=== PATIENT | female | born 1975 ===

== ENCOUNTER 2017-05-16 09:38 | Emergency (ER) | payer SELFPAY ==
[2017-05-16 09:53] VITALS: O2SAT 98
--- NOTE | 2017-05-16 10:35 | ED PDOC ---
HPI: Female Pain Time Seen by Provider: 05/16/17 09:58 Chief Complaint (Nursing): Female Genitourinary Chief Complaint (Provider): Vaginal bleeding History Per: Patient Additional Complaint(s): 42 yo female, no PMH, presents to ED with complaints of vaginal bleeding and cramping x 1 day. Pt is 11 weeks . Pt reports beeing seen and evaluated in the clinic yesterday and was told she has a demise. Pt has a follow up appointment at clinic on June 01; however, Pt was advised to present to ED if at anytime pain or bleeding start Past Medical History Reviewed: Nursing Documentation, Vital Signs Vital Signs: Last Vital Signs Temp 97 F L 05/16/17 09:50 Pulse 84 05/16/17 09:50 Resp 20 05/16/17 09:50 BP 124/80 05/16/17 09:50 Pulse Ox 98 05/16/17 09:50 - Medical History PMH: No Chronic Diseases - Surgical History Surgical History: No Surg Hx - Family History Family History: States: No Known Family Hx - Living Arrangements Living Arrangements: With Family - Social History Current smoker - smoking cessation education provided: No Drugs: Denies - Home Medications Home Medications: Ambulatory Orders Medication Instructions Recorded Ibuprofen [Motrin] 600 mg PO Q6 #20 tab 05/16/17 Misoprostol 200 mcg PO Q12 #8 tablet 05/16/17 oxyCODONE/Acetaminophen [Percocet 1 ea PO Q6 PRN #5 tab 05/16/17 5/325 mg Tab] - Allergies Allergies/Adverse Reactions: Allergies Allergy/AdvReac Type Severity Reaction Status Date / Time No Known Allergies Allergy Verified 05/16/17 09:50 Review of Systems ROS Statement: Except As Marked, All Systems Reviewed And Found Negative Gastrointestinal: Positive for: Abdominal Pain Genitourinary Female: Positive for: Vaginal Bleeding Physical Exam - Reviewed Nursing Documentation Reviewed: Yes Vital Signs Reviewed: Yes - Physical Exam Appears: Positive for: Well, Non-toxic, No Acute Distress Head Exam: Positive for: ATRAUMATIC, NORMAL INSPECTION, NORMOCEPHALIC Skin: Positive for: Normal Color, Warm, DRY Eye Exam: Positive for: EOMI, Normal appearance, PERRL ENT: Positive for: Normal ENT Inspection Neck: Positive for: Normal, Painless ROM Cardiovascular/Chest: Positive for: Regular Rate, Rhythm Respiratory: Positive for: CNT, Normal Breath Sounds Gastrointestinal/Abdominal: Positive for: Normal Exam, Bowel Sounds, Soft Pelvic Exam: Positive for: External Exam Normal, Active Bleeding (minimal) Back: Positive for: Normal Inspection Extremity: Positive for: Normal ROM Neurologic/Psych: Positive for: Alert, Oriented - Laboratory Results Result Diagrams: 05/16/17 10:45 - ECG O2 Sat by Pulse Oximetry: 98 Medical Decision Making Medical Decision Making: Diagnostics ordered Pt medicated with 2 mg Morphine IV for pain beta: 2079 Blood type: O+ US IMPRESSION: Intrauterine gestation with mildly deformed gestational sac. pole demonstrates no detectable cardiac activity. [place]-rump length corresponds to 7 weeks 3 days. Consistent with demise. Pt educated on results and demonstrated full understanding Case discussed with OB on-call, Dr. Cummings, who agreed pt stable for discharge at this time. Cytotec RX advised if Pt would like to expidite procedd. Advised to follow up with OB as scheduled. Return to ED with any worsening symptoms at any time. Disposition - Clinical Impression Clinical Impression: Spontaneous - Patient ED Disposition Is Patient to be Admitted: No - Disposition [facility] Disposition: Routine/Home Disposition Time: 14:23 Condition: STABLE Prescriptions: Ibuprofen [Motrin] 600 mg PO Q6 #20 tab Misoprostol 200 mcg PO Q12 #8 tablet oxyCODONE/Acetaminophen [Percocet 5/325 mg Tab] 1 ea PO Q6 PRN #5 tab PRN Reason: Pain, Severe (8-10) Instructions: Spontaneous Miscarriage (ED) Forms: [employer] (Uzbek) Print Language: KUWAITI
[2017-05-16 10:54] LABS: BASO # 0.1 K/uL (0.0-0.2); BASO % 0.7 % (0.0-2.0); EOS # 0.2 K/uL (0.0-0.7); EOS % 2.2 % (0.0-4.0); HEMOGLOBIN 15.3 g/dL (12.0-16.0); LYMPH # 2.5 K/uL (1.0-4.3); LYMPH % 25.5 % (20.0-40.0); MEAN CELL VOLUME 90.6 fl (81.0-99.0); MEAN CORPUSCULAR HEMOGLOBIN 30.6 pg (27.0-31.0); MEAN CORPUSCULAR HGB CONC 33.8 g/dL (33.0-37.0); MEAN PLATELET VOLUME 7.7 fl (7.2-11.7); MONO # 0.6 K/uL (0.0-0.8); MONO % 5.8 % (0.0-10.0); NEUT # 6.3 K/uL (1.8-7.0); NEUT % 65.8 % (50.0-75.0); RBC 4.99 Mil/uL (3.80-5.20); RED CELL DISTRIBUTION WIDTH 13.3 % (11.5-14.5); WHITE BLOOD COUNT 9.6 K/uL (4.8-10.8)
--- NOTE | 2017-05-16 12:34 | US ---
PROCEDURE: OB Pelvic Ultrasound HISTORY: demise? COMPARISON: 04/19/2017 FINDINGS: UTERUS: Intrauterine gestational sac identified. The sac is mildly deformed. Mean sac diameter is equivalent to 8 weeks 2 days. pole identified. [place]-rump length corresponds to 7 weeks 3 days. No detectable cardiac activity. Findings consistent with demise. [place]-gestational hemorrhage: None. Uterus measures 9.8 x 5.0 x 6.7 cm. No mass CERVIX: Long and closed. No cervical abnormality seen. RIGHT OVARY: Not visualized LEFT OVARY: Measures 2.3 x 1.3 x 2.0 cm. No mass. Normal flow. FREE FLUID: None. OTHER FINDINGS: None. IMPRESSION: Intrauterine gestation with mildly deformed gestational sac. pole demonstrates no detectable cardiac activity. [place]-rump length corresponds to 7 weeks 3 days. Consistent with demise.
[2017-05-16 14:19] VITALS: BP 110/68; PULSE 65; RESP 16; TEMP 98
== END 2017-05-16 14:16 | disposition home or self-care (01) ==
LOC: H.ER 09:38
DX: O03.9 Complete or unspecified spontaneous abortion without complication (principal); Z3A.11 11 weeks gestation of pregnancy

== ENCOUNTER 2017-06-08 10:42 | Emergency (ER) | payer SELFPAY ==
[2017-06-08 10:47] VITALS: BP 117/76; PULSE 71; RESP 20; TEMP 97.9; O2SAT 100
--- NOTE | 2017-06-08 11:29 | ED PDOC ---
HPI: Female Pain Time Seen by Provider: 06/08/17 11:02 Chief Complaint (Nursing): Female Genitourinary Chief Complaint (Provider): female genitourinary History Per: Patient History/Exam Limitations: no limitations Onset/Duration Of Symptoms: Days Additional Complaint(s): Miryam Calero is a 42 year old female, with no previous medical history, who was sent to the ED from the clinic for further evaluation of possible retaining of product of conception seen in an ultrasound done 3 days ago. Patient was seen in the ED on May where she was diagnosed with a miscarriage and informed to follow up with the clinic. Blood work shows a beta decrease from 2, 000 to 19. Patient currently denies any symptoms of pain, fever, chills, nausea or vomiting and reports vaginal bleeding has decreased. PMD: [facility] Past Medical History Reviewed: Historical Data, Nursing Documentation, Vital Signs Vital Signs: Last Vital Signs Temp 97.9 F 06/08/17 10:46 Pulse 71 06/08/17 10:46 Resp 20 06/08/17 10:46 BP 117/76 06/08/17 10:46 Pulse Ox 100 06/08/17 10:46 - Medical History PMH: No Chronic Diseases - Surgical History Surgical History: No Surg Hx - Family History Family History: States: Unknown Family Hx - Home Medications Home Medications: Ambulatory Orders Medication Instructions Recorded Ibuprofen [Motrin] 600 mg PO Q6 #20 tab 05/16/17 Misoprostol 200 mcg PO Q12 #8 tablet 05/16/17 oxyCODONE/Acetaminophen [Percocet 1 ea PO Q6 PRN #5 tab 05/16/17 5/325 mg Tab] - Allergies Allergies/Adverse Reactions: Allergies Allergy/AdvReac Type Severity Reaction Status Date / Time No Known Allergies Allergy Verified 05/16/17 09:50 Review of Systems ROS Statement: Except As Marked, All Systems Reviewed And Found Negative Constitutional: Negative for: Fever, Chills Gastrointestinal: Negative for: Nausea, Vomiting, Diarrhea Genitourinary Female: Negative for: Dysuria, Frequency, Incontinence, Hematuria , Vaginal Discharge, Pelvic Pain Physical Exam - Reviewed Nursing Documentation Reviewed: Yes Vital Signs Reviewed: Yes - Physical Exam Appears: Positive for: Well, Non-toxic, No Acute Distress Head Exam: Positive for: ATRAUMATIC, NORMAL INSPECTION, NORMOCEPHALIC Skin: Positive for: Normal Color, Warm, DRY Eye Exam: Positive for: EOMI, Normal appearance, PERRL ENT: Positive for: Normal ENT Inspection Neck: Positive for: Normal, Painless ROM Cardiovascular/Chest: Positive for: Regular Rate, Rhythm Respiratory: Positive for: CNT, Normal Breath Sounds Gastrointestinal/Abdominal: Positive for: Normal Exam, Bowel Sounds, Soft. Negative for: Tenderness Back: Positive for: Normal Inspection Extremity: Positive for: Normal ROM Neurologic/Psych: Positive for: Alert, Oriented - Laboratory Results Result Diagrams: 06/08/17 11:40 - ECG O2 Sat by Pulse Oximetry: 100 (RA) Pulse Ox Interpretation: Normal Medical Decision Making Medical Decision Making: Initial Impression: Spontaneous miscarriage Initial Plan: * serum * hematocrit * hemoglobin * cytotec 600 mg PO * reevaluation 1100: Consulted with Dr. Maravilla who reviewed ultrasound and serial blood tests and feels comfortable discharging the patient home after cytotec dose considering the patient is asymptomatic. She recommended patient follow up with the clinic in one week for repeat workup. Scribe Attestation: Documented by Yessi Lagunas, acting as a scribe for Edna Laurent MD. Provider Scribe Attestation: All medical record entries made by the Scribe were at my direction and personally dictated by me. I have reviewed the chart and agree that the record accurately reflects my personal performance of the history, physical exam, medical decision making, and the department course for this patient. I have also personally directed, reviewed, and agree with the discharge instructions and disposition. Disposition - Clinical Impression Clinical Impression: Spontaneous - Patient ED Disposition Is Patient to be Admitted: No Doctor Will See Patient In The: Office Counseled Patient/Family Regarding: Diagnosis, Need For Followup, Rx Given - Disposition [facility]] [facility] [Outside] - 06/15/17 Disposition: Routine/Home Disposition Time: 12:00 Condition: STABLE Additional Instructions: repeat beta-hcg in one week Instructions: Spontaneous Miscarriage (ED) Forms: [employer] (Cameroonian) Print Language: AFGHAN - RICK Present On Arrival: Lindsay
[2017-06-08 12:13] LABS: HEMOGLOBIN 12.6 g/dL (12.0-16.0)
== END 2017-06-08 13:00 | disposition home or self-care (01) ==
LOC: H.ER 10:42
DX: O03.9 Complete or unspecified spontaneous abortion without complication (principal)

== ENCOUNTER 2018-05-18 21:27 | Emergency (ER) | payer OTHER, SELFPAY ==
[2018-05-18] MEDS ORDERED: Sodium Chloride 0.9% 1,000 ML IV STA (22:04)
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
[2018-05-18 23:29] LABS: BASO % 0.3 % (0.0-2.0); EOS # 0.1 K/uL (0.0-0.7); EOS % 0.8 % (0.0-4.0); HEMOGLOBIN 14.1 g/dL (12.0-16.0); LYMPH # 1.2 K/uL (1.0-4.3); LYMPH % 7.7 % (20.0-40.0); MEAN CELL VOLUME 91.3 fl (81.0-99.0); MEAN CORPUSCULAR HEMOGLOBIN 30.8 pg (27.0-31.0); MEAN CORPUSCULAR HGB CONC 33.7 g/dL (33.0-37.0); MEAN PLATELET VOLUME 8.4 fl (7.2-11.7); MONO # 0.6 K/uL (0.0-0.8); MONO % 4.3 % (0.0-10.0); NEUT # 13.2 K/uL (1.8-7.0); NEUT % 86.9 % (50.0-75.0); PLATELET COUNT 302 K/uL (130-400); RBC 4.57 Mil/uL (3.80-5.20); RED CELL DISTRIBUTION WIDTH 13.3 % (11.5-14.5); WHITE BLOOD COUNT 15.2 K/uL (4.8-10.8)
[2018-05-18 23:41] LABS: ALB/GLOB RATIO 1.2 (1.0-2.1); ALBUMIN 4.4 g/dL (3.5-5.0); ALT/SGPT 48 U/L (9-52); AST/SGOT 41 U/L (14-36); BLOOD UREA NITROGEN 12 mg/dl (7-17); CALCIUM 9.4 mg/dL (8.4-10.2); GFR AFRICAN-AMERICAN > 60; GFR NON-AFRICAN AMERICAN > 60
[2018-05-18] MEDS ORDERED: Potassium Chloride 20 mEq ER Tab PO STA (23:43)
[2018-05-18] MEDS ORDERED: Potassium Chloride 20 mEq ER Tab PO ONE (23:52)
[2018-05-19 00:58] VITALS: RESP 20; TEMP 98.1
[2018-05-19 01:05] LABS: BASOPHIL 1 % (0-2); EOSINOPHIL 2 % (0-7); GIANT PLATELETS PRESENT; LARGE PLATELETS PRESENT; LYMPHOCYTE 10 % (20-50); MONOCYTE 5 % (0-10); NEUTROPHIL 82 % (42-75); PLATELET ESTIMATE NORMAL (NORMAL); TOTAL CELLS COUNTED 100
[2018-05-19 01:06] VITALS: BP 105/75; PULSE 74; O2SAT 100
--- NOTE | 2018-05-19 12:15 | US ---
Date of service: 05/18/2018 HISTORY: pelvic pain COMPARISON: Comparison made with prior study dated 07/05/2017. TECHNIQUE: Transabdominal/transvaginal sonographic evaluation of the pelvis performed FINDINGS: UTERUS: Measures 6.8 x 5.2 x 3.6 cm. Anteverted. There are at least 3 uterine fibroids present, 1 in the anterior fundal region measuring approximately 9 mm in greatest dimension 2nd in the posterior lower uterine segment measuring 1.4 cm and a 3rd in the anterior ribs lower uterine segment measuring 9 mm ENDOMETRIUM: Measures 4.2 mm in diameter. Unremarkable. CERVIX: No cervical abnormality identified. RIGHT OVARY: Measures 2.4 x x 0.9 x 1.0 cm. . There is a small echogenic focus adjacent to the ovary that measures 1.0 x 0.8 x 0.6 cm that could represent tiny dermoid. . . There is also small ovarian cyst measuring approximately 1.0 x 0.9 x 0.7 cm Normal flow. LEFT OVARY: Measures 2.9 x 2.6 x 1.9 cm. No solid mass. Normal flow. . Small follicular cyst measuring 1.2 x 1.3 x 0.8 cm FREE FLUID: No significant free fluid noted. OTHER FINDINGS: None. IMPRESSION: Uterine fibroids. Questionable small dermoid adjacent to the right ovary. Small bilateral adnexal cysts.
--- NOTE | 2018-05-19 13:37 | CT ---
Date of service: 05/18/2018 PROCEDURE: CT Abdomen and Pelvis without intravenous contrast HISTORY: R/O stone COMPARISON: None. TECHNIQUE: Contiguous helical/transaxial sections of the and pelvis performed without oral or intravenous contrast material. Additional 2D sagittal and coronal reformats provided. This CT exam was performed using one or more of the following dose reduction techniques: Automated exposure control, adjustment of the mA and/or kV according to patient size, and/or use of iterative reconstruction technique. Radiation dose: Total exam DLP = 326.73 mGy-cm. FINDINGS: LOWER THORAX: Unremarkable. LIVER: Unremarkable. No gross lesion or ductal dilatation. GALLBLADDER AND BILE DUCTS: Unremarkable. PANCREAS: Unremarkable. No gross lesion or ductal dilatation. SPLEEN: Unremarkable. ADRENALS: No adrenal lesions KIDNEYS AND URETERS: There are the several on very tiny bilateral renal calculi with mild left-sided hydronephrosis secondary to what appears to represent a 2.5 mm calculus in the distal left ureter -UVJ region. . VASCULATURE: Unremarkable. No aortic aneurysm. BOWEL: Unremarkable. No obstruction. No gross mural thickening. APPENDIX: Unremarkable. Normal appendix. PERITONEUM: Unremarkable. No free fluid. No free air. LYMPH NODES: Unremarkable. No enlarged lymph nodes. BLADDER: Unremarkable. REPRODUCTIVE: Unremarkable. BONES: No acute fracture. OTHER FINDINGS: None. IMPRESSION: Multiple tiny bilateral renal calculi with a small approximately 2.5 mm calculus in the left distal ureter/ UPJ region with secondary hydronephrosis.
== END 2018-05-19 01:23 | disposition home or self-care (01) ==
LOC: H.ER 21:27
DX: D25.9 Leiomyoma of uterus, unspecified (principal); N20.1 Calculus of ureter; E87.6 Hypokalemia; N83.201 Unspecified ovarian cyst, right side
CPT/HCPCS: 74176; 76830; 76856; 80053; 81025; 85025; 96361; 96374; 96375; 99283; J1885; J2405; J7030